=== PATIENT | female | born 1990 | race Caucasian/White ===

== ENCOUNTER 2020-01-06 14:02 | Observation (INO) | payer OTHER ==
[~2020-01-06 14:02] MED LIST: PNV1TABL17 PO
[2020-01-09] MEDS ORDERED: ASPI-555 PO (00:31)
== END 2020-01-06 16:52 | disposition home or self-care (01) ==
LOC: EDH 14:02 → LDH 14:03
PROVIDERS: ADMIT Obstetrics & Gynecology; ATTEND Obstetrics & Gynecology
DX: O26.893 Other specified pregnancy related conditions, third trimester (principal); N89.8 Other specified noninflammatory disorders of vagina; Z88.2 Allergy status to sulfonamides; Z88.7 Allergy status to serum and vaccine; Z3A.40 40 weeks gestation of pregnancy
CPT/HCPCS: 76815; 99284; G0378 ×2

== ENCOUNTER 2020-01-09 00:06 | Inpatient (IN) | payer OTHER ==
[~2020-01-09] VITALS: Ht 160 cm; Wt 85.7 kg
[2020-01-09] MEDS ORDERED: LACTATED RINGERS 1000ML 1,000 ML IV PRN (00:28)
[2020-01-09] MEDS ORDERED: AMPICILLIN 2GM+NS 100ML 100 ML IV SCH (00:30)
[2020-01-09] MEDS ORDERED: ASPI-556 PO (00:31)
[2020-01-09 00:48] LABS: APPEARANCE,URINE Clear (CLEAR); BILIRUBIN,URINE Negative (NEGATIVE); COLOR,URINE Yellow (YELLOW); GLUCOSE, URINE (UA) Negative (NEGATIVE); KETONES,URINE Negative (NEGATIVE); LEUKOCYTE ESTERASE ,URINE Trace (NEGATIVE); NITRATE,URINE Negative (NEGATIVE); OCCULT BLOOD,URINE Negative (NEGATIVE); PH,URINE 7.5 (5.0-8.0); PROTEIN,URINE Trace mg/dL (NEGATIVE)
[2020-01-09 01:12] LABS: BACTERIA,URINE Few /HPF (None Seen); RBC,URINE 0-1 /HPF (0-1)
[2020-01-09 01:13] LABS: HEMATOCRIT 32.4 % (36-48); MEAN CORPUSCULAR HEMOGLOBIN 22.6 pg (27.0-33.0); MEAN CORPUSCULAR HGB CONC 30.2 g/dL (32.0-36.0); MEAN CORPUSCULAR VOLUME 74.8 fL (79-99); PLATELET COUNT (AUTO) 339 K/uL (130-400); RED BLOOD CELL COUNT(AUTO) 4.33 MIL/uL (4.00-5.50); RED CELL DISTRIBUTION WIDTH 18.1 % (11.0-15.5); WHITE BLOOD COUNT (AUTO) 12.5 K/uL (4.8-10.8)
[2020-01-09 01:13] LABS: SQUAMOUS EPITHELIAL CELL,UR Moderate /HPF (0-2)
[2020-01-09] MEDS ORDERED: EPHEDRINE SULFATE 50 MG/ML AMPULE IVP PRN (01:45)
[2020-01-09] MEDS ORDERED: ROPIVACAINE 0.2% 100ML VIAL 100 ML EP SCH (01:45)
[2020-01-09] MEDS ORDERED: LACTATED RINGERS 500 ML 500 ML IV PRN (01:45)
[2020-01-09] MEDS ORDERED: NALOXONE HCL 0.4 MG/1 ML ML IV PRN (01:45)
[2020-01-09] MEDS ORDERED: OXYTOCIN-LR 20 UNITS/1000 ML 1,000 ML IV ONE (01:45)
[2020-01-09] MEDS ORDERED: FENTANYL CITRATE PF 50 MCG/1 ML 2ML VIAL ONE (01:57)
[2020-01-09] MEDS ORDERED: METHYLERGONOVINE MALEATE 0.2 MG/1 ML ML ONE (03:55)
[2020-01-09] MEDS ORDERED: MEASLES/MUMPS/RUBELLA VACCINE, LIVE 0.5 ML/VIAL SQ PRN (04:15)
[2020-01-09] MEDS ORDERED: LANOLIN 30GM OINTMENT TP PRN (04:15)
[2020-01-09] MEDS ORDERED: OXYTOCIN-LR 20 UNITS/1000 ML 1,000 ML IV SCH (04:15)
[2020-01-09] MEDS ORDERED: WITCH HAZEL 1 PAD TP PRN (04:15)
[2020-01-09] MEDS ORDERED: ACETAMINOPHEN-CODEINE 300/30MG TAB PO PRN (04:15)
[2020-01-09] MEDS ORDERED: BENZOCAINE/LANOLIN/ALOE VERA 60 ML AEROSOL TP PRN (04:15)
[2020-01-09] MEDS ORDERED: AMPICILLIN 1GM+NS 50ML 50 ML IV SCH (05:00)
[2020-01-09] MEDS: IBUPROFEN 600 MG TABLET PO PRN ×2 (06:16→21:08)
[2020-01-09 07:21] VITALS: BP 131/67
[2020-01-09] MEDS: DOCUSATE SODIUM 100 MG CAP PO SCH ×2 (08:53→21:08)
[2020-01-09 11:20] VITALS: BP 136/75
--- NOTE | 2020-01-09 15:25 | NUR ---
HX of POST ANXIETY Sw met with pt and Kerrie Billy [phone]. 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 They have basic items for and car seat. Dr Hathaway will follow baby at id. Pt has good support system and will have help at id. Pt reports hx of post anxiety that was dx by her OB Dr Norman after of her 1yro. Pt was put on Zofran for 3 to 6 months after . Pt states she and Dr Norman have discussed and plan is for pt to have her placenta encapsulated to help her after discharge in hopes of prevent same post anxiety. Pt denies any hx of ideation, suicide attempts, abuse, legal or mental health issues. Pt denies need for referral or intervention at this time. Addendum: 01/09/20 at 1544 by MICK BERNAL SS Amended: Links added.
[2020-01-09 17:10] VITALS: BP 111/71
[2020-01-09 20:00] VITALS: BP 108/66
[2020-01-09 23:23] VITALS: BP 108/66
[2020-01-10 03:40] VITALS: BP 98/60
[2020-01-10 06:11] LABS: HEPATITIS Bs ANTIGEN SCREEN P Negative (Negative)
[2020-01-10 06:57] LABS: HEMATOCRIT 26.2 % (36-48); MEAN CORPUSCULAR HEMOGLOBIN 23.4 pg (27.0-33.0); MEAN CORPUSCULAR HGB CONC 30.9 g/dL (32.0-36.0); MEAN CORPUSCULAR VOLUME 75.7 fL (79-99); RED BLOOD CELL COUNT(AUTO) 3.46 MIL/uL (4.00-5.50); RED CELL DISTRIBUTION WIDTH 18.4 % (11.0-15.5); WHITE BLOOD COUNT (AUTO) 21.7 K/uL (4.8-10.8)
[2020-01-10 07:15] VITALS: BP 125/69
[2020-01-10] MEDS: IBUPROFEN 600 MG TABLET PO PRN (07:22)
[2020-01-10] MEDS: DOCUSATE SODIUM 100 MG CAP PO SCH (08:06)
[2020-01-10] MEDS ORDERED: IBUP-2077 PO (08:55)
--- NOTE | 2020-01-10 11:15 | NUR ---
verbal and written discharge instructions given, informed of the follow up appointment, prescription given. all questions answered. informed to call the doctor for future concerns. pt voiced understanding to all things discussed. Addendum: 01/10/20 at 1143 by BRETT FINK RN Amended: Links added.
--- NOTE | 2020-01-10 11:20 | NUR ---
pt is dismissed in stable condition, brought to private car via wheelchair by Carina Potter pcp Addendum: 01/10/20 at 1245 by BRETT FINK RN Amended: Links added.
[2020-01-10 11:50] VITALS: BP 121/80
== END 2020-01-10 11:20 | disposition home or self-care (01) | DRG 807 ==
LOC: EDH 00:06 → LDH 00:07 → WSH 06:08
PROVIDERS: ADMIT Obstetrics & Gynecology; ATTEND Obstetrics & Gynecology
PROC: 10E0XZZ Delivery of Products of Conception, External Approach (ICD-10-PCS; principal; 2020-01-09)
PROC: 0HQ9XZZ Repair Perineum Skin, External Approach (ICD-10-PCS; 2020-01-09)
PROC: 00HU33Z Insertion of Infusion Device into Spinal Canal, Percutaneous Approach (ICD-10-PCS; 2020-01-09)
PROC: 3E0R3BZ Introduction of Anesthetic Agent into Spinal Canal, Percutaneous Approach (ICD-10-PCS; 2020-01-09)
DX: O76 Abnormality in fetal heart rate and rhythm complicating labor and delivery (principal); Z37.0 Single live birth; O70.0 First degree perineal laceration during delivery; O99.824 Streptococcus B carrier state complicating childbirth; O62.2 Other uterine inertia; O77.0 Labor and delivery complicated by meconium in amniotic fluid; Z3A.40 40 weeks gestation of pregnancy; Z28.21 Immunization not carried out because of patient refusal
CPT/HCPCS: 36415; 81001; 85027; 86592; 86850; 86900; 86901; 87340; A4314; G0378; J0290; J2210; J2590; J2795; J3010; J7120

== ENCOUNTER → 2021-01-19 | Emergency (ER) | payer BC, OTHER ==
[~2021-01-19] VITALS: Ht 160 cm; Wt 70.3 kg
[~2021-01-19] MED LIST changes: +ASPI-556 PO; +IBUP-2077 PO
[2021-01-19 19:16] LABS: APPEARANCE,URINE Clear (CLEAR); BILIRUBIN,URINE Negative (NEGATIVE); COLOR,URINE Orange (YELLOW); GLUCOSE, URINE (UA) Negative (NEGATIVE); KETONES,URINE Negative (NEGATIVE); LEUKOCYTE ESTERASE ,URINE Small (NEGATIVE); NITRATE,URINE Negative (NEGATIVE); OCCULT BLOOD,URINE Large (NEGATIVE); PROTEIN,URINE Trace mg/dL (NEGATIVE)
[2021-01-19 19:32] LABS: BACTERIA,URINE Rare /HPF (None Seen); RBC,URINE TNTC /HPF (0-1)
[2021-01-19 19:32] LABS: BASOPHILS % (AUTO) 0.4 % (0.0-5.0); EOSINOPHILS % (AUTO) 1.6 % (0.0-8.0); HEMATOCRIT 36.2 % (36-48); LYMPHOCYTES % (AUTO) 31.5 % (21.0-51.0); MEAN CORPUSCULAR HEMOGLOBIN 27.3 pg (27.0-33.0); MEAN CORPUSCULAR HGB CONC 32.6 g/dL (32.0-36.0); MEAN CORPUSCULAR VOLUME 83.6 fL (79-99); MONOCYTES % (AUTO) 9.3 % (3.0-13.0); NEUTROPHILS % (AUTO) 57.1 % (40.0-77.0); PLATELET COUNT (AUTO) 293 K/uL (130-400); RED BLOOD CELL COUNT(AUTO) 4.33 MIL/uL (4.00-5.50); RED CELL DISTRIBUTION WIDTH 12.3 % (11.0-15.5); WHITE BLOOD COUNT (AUTO) 7.7 K/uL (4.8-10.8)
[2021-01-19 19:33] LABS: SQUAMOUS EPITHELIAL CELL,UR Rare /HPF (0-2)
[2021-01-19 21:28] VITALS: BP 116/72
== END | disposition home or self-care (01) ==
LOC: EDH 18:17
DX: N80.9 Endometriosis, unspecified (principal); N93.9 Abnormal uterine and vaginal bleeding, unspecified; Z88.1 Allergy status to other antibiotic agents; Z79.82 Long term (current) use of aspirin; Z88.2 Allergy status to sulfonamides; Z79.1 Long term (current) use of non-steroidal anti-inflammatories (NSAID)
CPT/HCPCS: 36415; 81001; 81025; 84702; 85025; 86900; 86901

== ENCOUNTER 2022-05-21 05:27 | Observation (INO) | payer BC ==
[~2022-05-21] VITALS: Ht 160 cm; Wt 69.4 kg
[2022-05-21] MEDS ORDERED: CALDOLOR 800MG+NS 250ML 250 ML IV SCH (05:30)
[2022-05-21] MEDS ORDERED: LACTATED RINGERS 1000ML 1,000 ML IV SCH (05:30)
[2022-05-21 05:57] VITALS: BP 123/68
[2022-05-21] MEDS: CEFAZOLIN SODIUM 1 GM VIAL IVP PRN ×2 (06:34→07:28)
[2022-05-21 06:39] LABS: HEMATOCRIT 28.7 % (36-48); MEAN CORPUSCULAR HEMOGLOBIN 20.9 pg (27.0-33.0); MEAN CORPUSCULAR HGB CONC 30.7 g/dL (32.0-36.0); MEAN CORPUSCULAR VOLUME 68.2 fL (79-99); PLATELET COUNT (AUTO) 356 K/uL (130-400); RED BLOOD CELL COUNT(AUTO) 4.21 MIL/uL (4.00-5.50); RED CELL DISTRIBUTION WIDTH 16.2 % (11.0-15.5); WHITE BLOOD COUNT (AUTO) 5.6 K/uL (4.8-10.8)
[2022-05-21] MEDS ORDERED: FENTANYL CITRATE PF 50 MCG/1 ML 2ML VIAL ONE ×2 (06:53→07:18)
[2022-05-21] MEDS ORDERED: MIDAZOLAM HCL 1 MG/ML 2ML VIAL ONE (06:53)
[2022-05-21] MEDS ORDERED: PROPOFOL 10 MG/ML 20ML VIAL IV ONE ×2 (06:53→08:02)
[2022-05-21] MEDS ORDERED: SCOPOLAMINE HYDROBROMIDE 1 EACH ADH..PATCH TD ONE (07:03)
[2022-05-21] MEDS ORDERED: ROCURONIUM 10MG/1ML SYR 10 MG/ML ML ONE (07:13)
[2022-05-21] MEDS ORDERED: SUCCINYLCHOLINE CHLORIDE 20 MG/ML 10 ML VIAL ONE (07:13)
[2022-05-21] MEDS ORDERED: ONDANSETRON 4MG INJ ONE ×2 (07:13→09:39)
[2022-05-21] MEDS ORDERED: CEFAZOLIN SODIUM 2 GM VIAL IV ONE (07:28)
[2022-05-21] MEDS ORDERED: METHYLERGONOVINE MALEATE 0.2 MG/1 ML ML ONE (07:53)
[2022-05-21] MEDS ORDERED: OXYTOCIN 10 USP UNITS/ML ONE (07:53)
[2022-05-21] MEDS ORDERED: ONDANSETRON 4MG INJ IVP PRN (10:30)
[2022-05-21] MEDS ORDERED: EPHEDRINE SULFATE 50 MG/ML AMPULE IVP PRN (10:30)
[2022-05-21] MEDS ORDERED: DiphenhydrAMINE HCL 50 MG/ML VIAL IVP PRN (10:30)
[2022-05-21] MEDS ORDERED: SCOPOLAMINE HYDROBROMIDE 1 EACH ADH..PATCH TD SCH (10:30)
[2022-05-21] MEDS ORDERED: NALOXONE HCL 0.4 MG/1 ML ML IVP PRN ×3 (10:30)
[2022-05-21 12:52] LABS: HEMATOCRIT 25.2 % (36-48)
== END 2022-05-21 13:30 | disposition home or self-care (01) ==
LOC: LDH 05:27 → EDSTATUS 07:00
PROVIDERS: ADMIT Obstetrics & Gynecology; ATTEND Obstetrics & Gynecology
DX: O02.1 Missed abortion (principal); Z20.822 Contact with and (suspected) exposure to COVID-19; O62.2 Other uterine inertia; D50.9 Iron deficiency anemia, unspecified
CPT/HCPCS: 59820; 36430; 85027; 85014; 85018; 86850; 86900; 86901; 86923; 36415; G0378 ×5; A4351; P9016; J0690 ×2; J3010 ×2; J0330; J2250; J2590; J2704 ×2; J2405 ×2; J2210; J1741